=== PATIENT | male | born 1990 | race Caucasian/White ===

== ENCOUNTER 2016-09-25 17:57 | Emergency (ER) | payer OTHER ==
[2016-09-25] MEDS ORDERED: LIDOCAINE 5% PATCH ONE (18:23)
[2016-09-25] MEDS ORDERED: IBUPROFEN 600 MG TABLET ONE (18:23)
--- NOTE | 2016-09-25 19:21 | RAD ---
09/25/2016 7:18 PM CHEST - 2 VIEWS History: Back pain with breathing. Comparison: None Findings: Two views of the chest are obtained. The lungs are clear with out effusion or pneumothorax. The cardiomediastinal silhouette is unremarkable.. The osseous structures are intact.. IMPRESSION: No acute intrathoracic process.
--- NOTE | 2016-09-25 19:21 | RAD ---
HISTORY: Back pain with breathing. COMPARISON: None Findings: AP and lateral views of the thoracic spine are obtained. Lateral swimmer's view is also obtained at this time. There is no fracture or dislocation. Sagittal alignment is intact. The vertebral bodies and posterior elements are unremarkable. The alignment, discs, and discovertebral relationships are normal. Limited evaluation of the chest is unremarkable. Impression: Normal thoracic spine.
== END 2016-09-25 19:34 | disposition home or self-care (01) ==
LOC: ED 17:57
DX: M54.6 Pain in thoracic spine (principal); M62.830 Muscle spasm of back
CPT/HCPCS: 71020; 72072; 99283 ×2; A9270 ×2